=== PATIENT | female | born 1940 | race Caucasian/White ===

== ENCOUNTER 2019-05-27 06:39 | Observation (INO) | payer BC, OTHER ==
[2019-05-27] VITALS (12 sets, daily range): BP systolic 131–160; BP diastolic 40–93
[~2019-05-27] VITALS: Ht 170.2 cm; Wt 104.4 kg
[2019-05-27 07:40] LABS: HEMATOCRIT 37.3 % (37.0-47.0); HEMOGLOBIN 11.9 gm/dL (12.0-15.0); MCH 29.6 pg (26.0-34.0); MCHC 31.9 g/dL (28.0-37.0); MCV 92.9 fL (80.0-100.0); RBC 4.01 mil/uL (4.20-5.00); RDW 14.6 % (10.5-14.5)
[2019-05-27 07:43] LABS: CALCIUM 9.7 mg/dL (8.5-10.1); CREATININE 1.3 mg/dL (0.6-1.0); POTASSIUM 4.9 mmol/L (3.5-5.1)
[2019-05-27] MEDS ORDERED: LEVO-T100 MCG PO (07:50)
[2019-05-27] MEDS ORDERED: CELEXA 20 MG TA20 MG PO (07:51)
[2019-05-27] MEDS ORDERED: TOPROL XL50 MG PO (07:51)
[2019-05-27] MEDS ORDERED: NORCO 10-325 T1 EACH PO (07:52)
[2019-05-27] MEDS ORDERED: INDOMETHACIN 5050 M1 PO (07:53)
[2019-05-27] MEDS ORDERED: TREMFYA100 MG/11 SUBQ (07:54)
--- NOTE | 2019-05-27 09:09 | EKG ---
[facility] [place] [address] ELECTROCARDIOGRAM REPORT Name: REYNOLD WEBB Room #: REG [facility]#: [id number] Admission: 05/27/19 Attend Phys: Donovan Colin MD, Discharge: Date of : 40 Report #: [id number] THIS REPORT FOR: cc: FAM - Family physician unknown FAM - Family physician unknown Karan Deluca MD [facility] THIS REPORT FOR: //name// [facility] Test Date: 2019-05-27 Test Time: 07:14:22 Pat Name: REYNOLD WEBB Department: Room: Gender: Speech Therapy Assistant: Lee Ann BARRERA : 1940 Requested By: Donovan Colin Order Number: [id number] MD: Karan Deluca Measurements Intervals [place] Rate: 63 P: 13 CA: 185 QRS: 66 QRSD: 119 T: 87 QT: 419 QTc: 429 Interpretive Statements Sinus rhythm Probable left ventricular hypertrophy Nonspecific T abnrm, anterolateral leads No previous ECG available for comparison Electronically Signed On 05-27-2019 9:08:05 BUILDING SERVICES COORDINATOR by Karan Deluca [email or web address] <ELECTRONICALLY SIGNED> By: Karan Deluca MD, FACC 05/27/19 0908 3 Karan Deluca MD, [facility] /EPI
--- NOTE | 2019-05-27 16:07 | CATHLAB ---
[facility] [address] [place] [address] INVASIVE PROCEDURE REPORT Name: REYNOLD WEBB Room #: 209-P ADM Mahendra Olivarez#: [id number] Admission: 05/27/19 Attend Phys: Donovan Colin MD, Discharge: Date of : 40 Report #: [id number] THIS REPORT FOR: cc: FAM - Family physician unknown FAM - Family physician unknown Donovan Colin MD [facility] ~ APPROVED REPORT Study performed: 05/27/2019 08:01:47 Patient Details Patient Status: Out-Patient Room #: The patient is a 79 year-old female Event Personnel Donovan Colin Heavy Equipment Technician, Angelique Adan RN RN, Zaria Llamas RTR, Evelyne Weeks Ja'net RTR Monitor, Ileana Mo Monitor Procedures Performed Art Access - R femoral artery* Brandon Access - R femoral vein Right and Left Heart Cath Lt Vent/Cors/Grafts 4116292 RLLVCORCAB Abdominal Aortography 424191 68645 Initial Mod Sed Same Phys/QHP Gr5y 486429 41720 Mod Sed Same Phys/QHP Ea 485812 Hemostasis w/ Mynx STACY Place w/wo Plasty Single CIRC 763587 Hemostasis with Manual pressure Indication Chest pain Procedure Narrative The Right Groin^ was infiltrated with 1% Lidocaine subcutaneous anesthesia. A PINNACLE 6FR Sheath #[id number] sheath was inserted into the RFA^. Coronary angiography was performed using coronary diagnostic catheters. The right coronary system was accessed and visualized with a JR4 catheter. The left coronary system was accessed and visualized with a JL4 catheter. The left ventricle was accessed and visualized with a STR PIG catheter. Left ventriculogram was performed in 30 degree projection. An aortogram of the abdominal aorta was performed. Hemostasis was obtained with manual pressure following sheath removal without any complications. There was no hematoma. A 7FR SHEATH WAS PLACED IN THE RFV FOR RIGHT HEART/SWAN TD. HR = 81 CO = 5.10 CI = 2.34. [facility] [address] [place] [address] INVASIVE PROCEDURE REPORT Name: LAVINIA WEBBJOSHUA Roberts Room #: 209-P [facility]#: [id number] Admission: 05/27/19 Attend Phys: Donovan Colin, Discharge: Date of : 40 Report #: [id number] Intraoperative Conscious Sedation Sedation start time: 822 Case end Time: 1021 Fentanyl 200 mcg Versed 4 mg Fluoro Time: 21.17 minutes Dose: DAP 22578.60 cGycm2 2362 mGy Contrast Type and Amount: Visipaque 205 ml Hemodynamics The right atrial mean pressure is 26 mmHg. The pulmonary artery pressure is 56/19 mmHg with a mean of 37 mmHg. The mean pulmonary capillary wedge pressure is 29 mmHg. The aortic pressure is 169/75 mmHg with a mean of 112 mmHg. The left ventricular pressure is 188/10 mmHg with a mean of mmHg. The left ventricular end diastolic pressure is 18 mmHg. The cardiac output using thermo method is 5.10 L/min. The cardiac index using thermo method is 2.34 L/min/m2. PCI Technique Lesion Percutaneous coronary intervention was performed on the mid circumflex artery segment. BALLOON DILATION A Balloon catheter Sprinter OTW 2.5 x 12 #[id number] was inserted and inflated up to 14atm for 22seconds. Additional Inflation: 18.00atm for 32seconds. STENT DEPLOYMENT A stent XIENCE MICKI RX 2.75 X 12 #[id number] was inserted and inflated up to 18.00atm for 37seconds. Conclusion 1. Successful PTCA stent of a high-grade ostial proximal circumflex artery filling a large distal OM that was not bypassed 90% to 0% with a 2.75 x 12 Micki medicated stent to 3.0 mm ZACH grade III flow #2 left main moderately disease giving rise to an LAD which is occluded in the circumflex that was just stented #3 grayling right occluded #4 SVG to a OM1 is diffusely filling this diffusely diseased vessel the large distal OM was filled via the grayling system which was just stented. #5 SVG to diagonal intact filling a mildly diseased diagonal branch. #6 ectatic large right coronary artery graft is intact with mild disease feeling a relatively small PDA MARY ANN diffusely diseased system but anatomically dominant at least codominant. #7 ARGUETA to LAD is intact with no significant disease diffuse disease [facility] [address] [place] [address] INVASIVE PROCEDURE REPORT Name: REYNOLD WEBB Room #: 209-P [facility] M.R.#: [id number] Admission: 05/27/19 Attend Phys: Donovan Colin, Discharge: Date of : 40 Report #: [id number] LAD extends to the apex #8 normal left nuclear size with inferior basilar akinesis EF 50% range #9 abdominal aorta shows extreme tortuosity prior aortic stent graft intact. Renal arteries remain with brisk flow. Brisk flow and iliac system. Recommendations and plan: Extremely tortuous lower extremity arterial system and stent graft made this technically difficult challenging case. Final result was good these findings are consistent with the nuclear test. This was a large OM branch that was not filled via a vein graft. Market improvement in this flow consistent with the ischemic response on the nuclear test. Follow-up CCU follow post stent protocol. Dual antiplatelet therapy. <ELECTRONICALLY SIGNED> By: Donovan Colin MD, FACC 05/27/19 1606 1606 1606 Donovan Colin MD, FACC /INF
--- NOTE | 2019-05-27 18:07 | NUR ---
PATIENT ARRIVED FROM CATHLAB, ALERT AND ORIENTED X4. RT GRION SITE INTACT, SEE POST CARDIAC CATH FOLLOW INTERVENTION.C/O LEGS AND BACK PAIN MEDICATED ORDERED. AND WILL CONTINUE WITH POC.
[2019-05-28 03:29] VITALS: BP 128/46
[2019-05-28 05:27] LABS: HEMATOCRIT 35.7 % (37.0-47.0); HEMOGLOBIN 11.6 gm/dL (12.0-15.0); MCH 29.9 pg (26.0-34.0); MCHC 32.5 g/dL (28.0-37.0); MCV 92.2 fL (80.0-100.0); RBC 3.87 mil/uL (4.20-5.00); RDW 14.5 % (10.5-14.5); WBC 8.5 thou/uL (4.0-11.0)
[2019-05-28 05:39] LABS: APTT 29.3 Seconds (24.5-32.8); PROTIME 10.2 Seconds (9.3-11.4)
[2019-05-28 05:53] LABS: CALCIUM 8.4 mg/dL (8.5-10.1); CREATININE 1.4 mg/dL (0.6-1.0); TROPONIN-I 0.16 ng/mL (<0.06)
[2019-05-28 07:35] VITALS: BP 158/77
--- NOTE | 2019-05-28 07:53 | NUR ---
PATIENT CARES ASSUMED AT SHIFT CHANGE. PATIENT WAS ASSESSED MEDS WERE PASSED. PATIENT WAS C/O LEG CRAMPS USED ICE PACKS FOR RELIEFE.ALSO TOLD HER ZOFIA CHAVES TO HELP AND TO CHECK WITH HER DOCTOR. ROUNDS WERE DONE DAUGHTER AT THE BEDSIDE
--- NOTE | 2019-05-28 08:08 | EKG ---
[facility] [place] [address] ELECTROCARDIOGRAM REPORT Name: REYNOLD WEBB Room #: 209- ADM [facility] M.R.#: [id number] Admission: 05/27/19 Attend Phys: Donovan Colin MD, Discharge: Date of : 40 Report #: [id number] THIS REPORT FOR: cc: FAM - Family physician unknown FAM - Family physician unknown Karan Deluca MD [facility] THIS REPORT FOR: //name// [facility] Test Date: 2019-05-28 Test Time: 07:30:32 Pat Name: REYNOLD WEBB Department: Room: 209 Gender: F Rewriter: LEONILA : 1940 Requested By: Greer Manning Order Number: [id number] MD: Karan Deluca Measurements Intervals [place] Rate: 76 P: 46 [place]: 157 QRS: 67 QRSD: 118 T: 129 QT: 384 QTc: 432 Interpretive Statements Sinus rhythm Nonspecific ST and T wave abnormality Compared to ECG 05/27/2019 07:14:22 Nonspecific change in the ST and T-wave segments Electronically Signed On 05-28-2019 8:06:48 SPACE BUYER by Karan Deluca [email or web address] <ELECTRONICALLY SIGNED> By: Karan Deluca MD, [facility] 05/28/19805 9 9 Karan Deluca MD, [facility] /EPI
[2019-05-28 08:10] VITALS: BP 158/77
[2019-05-28 08:25] VITALS: BP 158/77
[2019-05-28] MEDS ORDERED: ROSUVASTATIN CA20 MG PO (08:37)
[2019-05-28] MEDS ORDERED: ASPIR 8181 MG PO (08:37)
[2019-05-28] MEDS ORDERED: EFFIENT10 MG PO (08:37)
[2019-05-28] MEDS ORDERED: NORVASC10 MG PO (08:37)
[2019-05-28] MEDS ORDERED: LASIX 40 MG TAB40 MG PO (08:58)
[2019-05-28] MEDS ORDERED: POTASSIUM20 PO (08:58)
--- NOTE | 2019-05-28 10:49 | NUR ---
PT ASSESSED, VSS, REVIEWED POC WITH PT AND DAUGHTER, BOTH VERBALIZED UNDERSTANDING, BENEDICT ROSALES IN TO SEE PT FOR DR HECK, REVIEWED CARE AND MEDS, BOTH VERBALIZED UNDERSTANDING, TELE REMOVED, R AC IV REMOVED, DISCHARGE INSTRUCTIONS REVIEWED AND SIGNED, PT LEFT WITH DAUGHTER AND TOOK ALL BELONGINGS.
== END 2019-05-28 10:53 | disposition home or self-care (01) ==
LOC: CATH 06:39 → 2N 10:52 → CATH 12:19 → ENTRNSPT 05-28 10:41 → EDTRNSPTSTS 05-28 10:44 → 2N 05-28 10:53
PROVIDERS: Nurse Practitioner; ADMIT Internal Medicine Cardiovascular Disease
DX: I25.10 Atherosclerotic heart disease of native coronary artery without angina pectoris (principal); R94.39 Abnormal result of other cardiovascular function study; I10 Essential (primary) hypertension; I11.0 Hypertensive heart disease with heart failure; I50.9 Heart failure, unspecified; E78.5 Hyperlipidemia, unspecified; M54.9 Dorsalgia, unspecified; G89.29 Other chronic pain; I71.4 Abdominal aortic aneurysm, without rupture; I50.32 Chronic diastolic (congestive) heart failure; Z86.73 Personal history of transient ischemic attack (TIA), and cerebral infarction without residual deficits; Z95.1 Presence of aortocoronary bypass graft

== ENCOUNTER 2021-01-03 13:25 | Inpatient (IN) | payer BC, OTHER ==
[~2021-01-03] VITALS: Ht 172.7 cm; Wt 100.4 kg
[~2021-01-03 13:25] MED LIST: ASPIR 8181 MG PO; CELEXA 20 MG TA20 MG PO; EFFIENT10 MG PO; INDOMETHACIN 5050 M1 PO; LASIX 40 MG TAB40 MG PO; LEVO-T100 MCG PO; NORCO 10-325 T1 EACH PO; NORVASC10 MG PO; POTASSIUM20 PO; ROSUVASTATIN CA20 MG PO; TOPROL XL50 MG PO; TREMFYA100 MG/11 SUBQ
[2021-01-03 14:31] VITALS: BP 125/61
[2021-01-03 16:25] LABS: HEMATOCRIT 26.7 % (37.0-47.0); HEMOGLOBIN 8.7 gm/dL (12.0-15.0); MCH 29.3 pg (26.0-34.0); MCHC 32.5 g/dL (28.0-37.0); MCV 90.1 fL (80.0-100.0); RBC 2.96 mil/uL (4.20-5.00); RDW 15.8 % (10.5-14.5)
[2021-01-03 16:43] LABS: CALCIUM 8.3 mg/dL (8.5-10.1); CREATININE 1.6 mg/dL (0.6-1.0); POTASSIUM 4.2 mmol/L (3.5-5.1)
[2021-01-03 16:49] LABS: INR 0.94; PROTIME 10.3 Seconds (10.5-12.1)
[2021-01-03] MEDS ORDERED: BACLOFEN 10MG T10 MG PO (18:16)
[2021-01-03] MEDS ORDERED: LIDODERM1 EACH TRANSDERM (18:18)
[2021-01-03] MEDS ORDERED: ULTRAM50 MG PO (18:19)
--- NOTE | 2021-01-03 18:42 | NUR ---
DIRECT ADMIT GI PT ARRIVED TO ROOM AROUND 1630. PT IS AOX4 AND IS ABLE TO AMBULATE WITH A WALKER SBA. COMPLETED ALL ADMIT ASSESSMENTS AND PROTOCOLS, UPDATED WRISTBAND, SET UP ROOM, CALLED MD FOR ORDERS, AND CONFIRMED WITH GI MD APPROPRIATE CODE STATUS. PT VERBALIZED TO BOTH MD AND RN THAT SHE WOULD NOT LIKE TO BE SAVED. ADMIT CHECKLIST COMPLETED, MEDICATIONS GIVEN INCLUDING PAIN MEDS, AND D5NS FOR LOW BLOOD SUGAR. PLAN TO HAVE EGD TOMORROW TO LOCATE UPPER GI BLEED. WILL POST FIRST STRIP ON CHART, RUNNING NORMAL SINUS RYTHM. WILL UPDATE HYDRO GENERATION MANAGER RN.
[2021-01-03 19:29] VITALS: BP 99/38
[2021-01-04] VITALS (12 sets, daily range): BP systolic 113–147; BP diastolic 34–71
--- NOTE | 2021-01-04 05:52 | NUR ---
Pt. has been up to the bedside comode several times during the night. She has been having loose bloody stools. Bp was low (see VS). Pt. also c/o abdominal pain. Krystal MCMULLEN notified of c/o pain and low bp. See orders CPOE. Iv pain med given (see emar) for c/o abdominal pain with some relief noted. Pt. offers no c/o dizziness. Assisted up to the bedside comode with assistance of one. Bed alarm is on.
[2021-01-04 07:29] LABS: HEMATOCRIT 21.1 % (37.0-47.0); MCH 28.5 pg (26.0-34.0); WBC 7.6 thou/uL (4.0-11.0)
[2021-01-04 07:30] LABS: MCHC 31.7 g/dL (28.0-37.0); RBC 2.34 mil/uL (4.20-5.00); RDW 15.3 % (10.5-14.5)
[2021-01-04 07:46] LABS: HEMOGLOBIN 6.7 gm/dL (12.0-15.0)
--- NOTE | 2021-01-04 15:16 | NUR ---
PT ADMITTED RELATED TO GI BLEED. CM REVIEWED CHART AND SPOKE WITH CARE TEAM. CM MET WITH PT AND FRIEND RODRIGUEZ AT BEDSIDE THIS DAY. PT APPEARED TO BE A&O X4. CM ROLE INTRODUCED. PT INDICATED SHE RESIDES ALONE IN A HOUSE WITH A STAIR GLIDE TO ENTER AND NO STEPS INSIDE. 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 PT INDICATED SHE HAS A CANE AND A FWW FOR USE AT HOME. PT'S PCP IS DR. QUESADA IN [facility]. 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 PT INDICATED SHE PLANS TO RETURN HOME ONCE MEDICALLY STABLE. PT HAVING AN EGD THIS DAY. CM FOLLOWING REGARDING DC PLANNING.
--- NOTE | 2021-01-04 15:35 | NUR ---
Assumed pt care at 7am.Pt in bed very anxious and particular about taking her home pain med. I heard her asking her friend to bring her home med to hospital Assessment completed.vss but low hr noted.Oral pain med given with sips of water.Received call from lab that pt hgb was 6.7 Dr Flores notified. order noted. Blood transfusion started around 1227. No reaction noted.Pt left for gi lab at 1330 accomapnnied by son. Will continue to monitor.
[2021-01-04 20:10] LABS: HEMATOCRIT 25.9 % (37.0-47.0); HEMOGLOBIN 8.5 gm/dL (12.0-15.0)
[2021-01-05] VITALS (9 sets, daily range): BP systolic 122–152; BP diastolic 52–72
[2021-01-05 06:14] LABS: HEMATOCRIT 23.3 % (37.0-47.0); HEMOGLOBIN 7.7 gm/dL (12.0-15.0); MCH 29.7 pg (26.0-34.0); MCV 90.1 fL (80.0-100.0); RBC 2.59 mil/uL (4.20-5.00); RDW 15.3 % (10.5-14.5); WBC 8.6 thou/uL (4.0-11.0)
--- NOTE | 2021-01-05 06:29 | NUR ---
RECEIVED PATIENT FRO LITIGATION DOCKET MANAGER AROUND 2000H.PATIENT IS ALERT AND ORIENTED X4.WITH RIGHT GROIN SITE COVERED WITH DRESSING C/D/I.ON NASAL CANNULA AT 2LPM SATURATING WELL.NOT IN DISTRESS.CONFIREMD WITH DR. Farris REGARDING DIET,HE OREDRED TO START ON CLEAR LIQUIDS.ALL NEEDS ATTENDED.FOR CONTINOUS MONITORING.
[2021-01-05 06:41] LABS: CALCIUM 7.9 mg/dL (8.5-10.1); CREATININE 1.1 mg/dL (0.6-1.0); POTASSIUM 4.1 mmol/L (3.5-5.1)
--- NOTE | 2021-01-05 16:34 | NUR ---
patient resting in bed at this time. patient on room air but occasionally needs oxgen while ambulating; 2 L OXYGEN. pt denies any needs at this time. BM TODAY; PT CONTINUES TO HAVE MELENA STOOLS. DENIES DIZZINESS, HEADACHE, NAUSE, CHEST PAIN, OR SHORTNESS OF AR. NO COMPLAINTS OF PAIN AT THIS TIME. FALL PRECAUTIONS IN PLACE; CALL LIGHT WITHIN REACH.
--- NOTE | 2021-01-05 17:34 | P ---
[facility] [place] [address] PROCEDURE REPORT Name: REYNOLD WEBB Room #: 201-P ADM IN .R.#: [id number] Admission: 01/03/21 Attend Phys: Ollie Khanna MD Discharge: Date of : 40 Report #: [id number] THIS REPORT FOR: cc: FAM - Family physician unknown FAM - Family physician unknown Miles Michele MD ~ cc: Elliot Mart MD, Emory Tabor MD DATE OF SERVICE: 01/04/2021 PROCEDURE PERFORMED: Upper endoscopy with bleeding control. HISTORY OF PRESENT ILLNESS: The patient is an 80-year-old female who was transferred from [facility] for a history of likely upper GI bleed. She had a drop in her hemoglobin. She has had a previous history of peptic ulcer disease in the past. In October was noted to have a duodenal ulcer, was taking meloxicam. She was placed on PPI therapy, but only took it for 1 month. She has had melanotic stools recently. Her hemoglobin has dropped from 8.7-6.7 today. She is receiving 1 unit of packed cells at this time. Plan is for upper endoscopy. DESCRIPTION OF PROCEDURE: The risks and benefits of the procedure were explained to the patient, those risks including but not limited to bleeding, perforation and the risk of sedation. She understood these risks and gave informed consent. Sedation was given using propofol per Anesthesia. Next, using a standard Olympus upper endoscope, the scope was placed in the patient's mouth and advanced under direct vision through the esophagus, stomach and into the second portion of the duodenum. The esophagus was normal throughout. The GE junction was normal. Overall, the gastric mucosa was normal. The pylorus was normal and patent. In the distal duodenal bulb and first portion of the duodenum, a large deep ulcer was noted. There was a visible vessel with fresh clot. I was able to advance the scope beyond this into the second portion of the duodenum, which was normal. I brought the scope back to the ulcer. The ulcer was approximately 2 cm in diameter. I then proceeded with injection of epinephrine and 7-Montserratian bipolar cautery. Unfortunately, it started bleeding with treatment and despite working for approximately 30-40 minutes injecting a total of 5 mL of epinephrine as well as using bipolar cautery, it continued to ooze. The ulcer was deep and was not pulsatile bleeding, but again was continuing to ooze despite endoscopic therapy. At this point, I felt we were not going to be successful in stopping the bleeding. I did not feel like a clip would be able to be used because of the depth of the ulcer and the hardness of the surface. Therefore, at this point, the scope was then withdrawn and the procedure terminated. The patient tolerated the procedure well. IMPRESSION: Duodenal bulb ulcer, visible vessel, adherent clot. Despite multiple efforts to stop bleeding with epinephrine and cauterization, she [address] [address] PROCEDURE REPORT Name: LAVINIA WEBBDA Armando Room #: 201-P [facility] IN ..#: [id number] Admission: 01/03/21 Attend Phys: Ollie Khanna MD Discharge: Date of : 40 Report #: [id number] continues to have oozing at the spot. I therefore discussed the case with Dr. Elliot Mart. Plan is for Dr. Mart to perform an arteriogram this evening in an attempt to stop the bleeding if it is actively still bleeding at that time. We will also speak with Dr. Lamb just in case surgery is required. In the meantime, continue PPI drip and monitoring her closely. Thank you for allowing me to participate in her care. <ELECTRONICALLY SIGNED> By: Miles Michele MD 01/05/21 1734 1502 1628 Miles Michele MD /nt
[2021-01-06 04:23] VITALS: BP 150/80
--- NOTE | 2021-01-06 05:09 | NUR ---
Pt A/OX4,weak,up with SBA/BSC. VSS. C/o back pain at HS medicated per EMAR with relief reported. Pt still having loose dark stools,reported by tech once bright red stool not observed by underwriter solicitation director. Denies any light headedness,nausea or headache. SR/SA on telemetry. New PIV on LAC with Protonix infusing w/o problems. Resting quietly w/o distress oxygen in place at 2L/NC. Fall precautions in place.
[2021-01-06 07:47] VITALS: BP 148/62
[2021-01-06 11:22] LABS: HEMATOCRIT 22.7 % (37.0-47.0); HEMOGLOBIN 7.5 gm/dL (12.0-15.0)
--- NOTE | 2021-01-06 11:23 | NUR ---
TOOK OVER CARE OF PATIENT AT 0700. PATIENT RESTING COMFORTABLY IN BED AT THIS TIME. DENIES ANY NEEDS. HELPED AMBULATE PATIENT TO BSC. DR. ANG ORDERED STAT H&H THIS MORNING; PATIENT'S H&H WAS CANCELLED YESTERDAY BY LAB; CALLED LAB FOR THE STAT LAB. WILL CONTINUE TO MONITOR H&H; PATIENT'S FRIENDS PRESENT IN ROOM. FALL PRECAUTIONS IN PLACE AND CALL LIGHT WITHIN REACH.
[2021-01-06 11:30] VITALS: BP 131/61
[2021-01-06 16:24] VITALS: BP 151/61
[2021-01-06 17:08] LABS: CREATININE 1.1 mg/dL (0.6-1.0); POTASSIUM 4.2 mmol/L (3.5-5.1)
[2021-01-06 17:37] LABS: HEMATOCRIT 21.4 % (37.0-47.0); HEMOGLOBIN 6.9 gm/dL (12.0-15.0)
--- NOTE | 2021-01-06 18:34 | NUR ---
INFORMED DR. CALLES REGARDING PATIENTS LOW HEMOGLOBIN AT 6.9. DR. CALLES DID NOT HAVE ANY NEW ORDERS. DR. ANG ORDERED 1 PRBC TRANSFUION TONIGHT. WILL CONTINUE TO MONITOR HEMOGLOBIN.
[2021-01-06 20:15] VITALS: BP 142/50
[2021-01-06 20:36] VITALS: BP 132/51; BP 153/78
[2021-01-07] VITALS (7 sets, daily range): BP systolic 141–176; BP diastolic 60–78
[2021-01-07 04:38] LABS: HEMOGLOBIN 6.7 gm/dL (12.0-15.0)
[2021-01-07 04:41] LABS: HEMATOCRIT 20.5 % (37.0-47.0)
[2021-01-07 22:39] LABS: HEMATOCRIT 29.6 % (37.0-47.0)
[2021-01-07 22:50] LABS: HEMOGLOBIN 9.6 gm/dL (12.0-15.0)
[2021-01-08 05:00] VITALS: BP 134/58
--- NOTE | 2021-01-08 07:35 | NUR ---
ASSUME CARE 1900. PT/VITALS STABLE. INTERMITTENT BACK PAIN INDICATED. MODERATE RTOLERANCE TO ACTIVITY. ASSESSMENT CHARTED. MODERATE PROGRESS TOWARDS POC. PT DENIES ANY ABDOINAL PAIN. NO TARRY STOOLS NOTED THROUGH THE SHIFT. NO DISTRESS NOTED THROUGH THE NIGHT. SR/SA/1DAVB NOTED ON MONITOR. PLAN IS TO CONTINUE PROTONIX DRIP AND STAY NPO FOR EGD THIS AM. WILL CONTINUE TO MONITOR AND FOLLOW WITH POC
[2021-01-08 08:14] LABS: HEMATOCRIT 29.5 % (37.0-47.0); HEMOGLOBIN 9.5 gm/dL (12.0-15.0); MCH 28.1 pg (26.0-34.0); MCHC 32.3 g/dL (28.0-37.0); MCV 86.8 fL (80.0-100.0); RBC 3.4 mil/uL (4.20-5.00); RDW 17.3 % (10.5-14.5); WBC 6.9 thou/uL (4.0-11.0)
[2021-01-08 08:24] LABS: CALCIUM 8.5 mg/dL (8.5-10.1); CREATININE 1.1 mg/dL (0.6-1.0); POTASSIUM 3.9 mmol/L (3.5-5.1)
[2021-01-08 12:22] VITALS: BP 147/63
[2021-01-08 16:00] VITALS: BP 143/61
[2021-01-08 19:16] VITALS: BP 149/61
[2021-01-09 04:48] VITALS: BP 156/60
--- NOTE | 2021-01-09 08:10 | NUR ---
ASSUME CARE 1900. PT/VITALS STABLE. NO TARRY STOOLS NOTED THROUGH THE NIGHT. CHRONIC BACK PAIN INDICATED WITH MODREATE RELIEF FROM PAIN MEDICATION. ASSESSMENT CHARTED. PROGRESSING WELL WITH POC. PT STILL ON CLEAR LIQUID DIET AND WILL POSSIBLY BE ADVANCED TODAY. TLERATING CLEAR LIQUID WELL. PLAN IS TO POSSIBLY DISCHARGE PT WITHIN 1-2 DAYS IF TOLERATES ADVANCED DIET. WILL CONTINUE TO MONITOR AND FOLLOW WITH POC
[2021-01-09 08:54] VITALS: BP 143/71
[2021-01-09] MEDS ORDERED: SYNTHROID137 MC1 PO (09:59)
[2021-01-09] MEDS ORDERED: MIRALAX17 GM PO (09:59)
[2021-01-09] MEDS ORDERED: PROTONIX40 M2 PO (09:59)
[2021-01-09] MEDS ORDERED: ALPRAZOLAM 0.0.25 M1 PO (09:59)
[2021-01-09 10:24] LABS: HEMATOCRIT 28.7 % (37.0-47.0); HEMOGLOBIN 9.5 gm/dL (12.0-15.0)
[2021-01-09 12:16] VITALS: BP 140/64
[2021-01-09 16:23] VITALS: BP 141/70
--- NOTE | 2021-01-09 17:33 | NUR ---
Patient to dc home today. Called HH agencies that service her area of [facility]. [facility], [place], [facility], [facility], [facility] all cannot accept for HH either do not take insurance or not service area at this time. Sp with patient she reports she is aware no HH service in her area. dtr present and reports they needed to pay out of pocket for care in home in past. Dtr reports she will be avail to assist patient at home. Patient and dtr interest in outpatient therapy. Updated phys for script.
--- NOTE | 2021-01-09 18:04 | NUR ---
PT IS AXOX4, PLEASANT; VSS, AFEBRILE, SR/SA ON THE MONITOR. PT C/O SOME ANXIETY, RX ALPRAZOLAM GIVEN. C/O PAIN IN BACK AND HIPS, RX HYDROCODONE GIVEN. PT PROGRESSED FROM CLEAR LIQUID TO FULL LIQUID TO SOFT DIET PER GI. PT TOLERATED WELL, DENIES N/V. PT TO D/C TO HOME WITH OUTPT THERAPY. DTR AT THE BEDSIDE. PT AND DTR COMMUNICATED UNDERSTANDING. PT TO D/C WITH DTR HOME VIA PERSONAL VEHICLE. FALL PRECAUTIONS IN PLACE. NO CONCERNS AT THIS TIME.
[2021-01-09 18:16] VITALS: BP 148/60
[2021-01-10] MEDS ORDERED: CARAFATE 1 GM TA1 G1 PO ×2 (14:46→14:49)
== END 2021-01-09 19:18 | disposition home or self-care (01) | DRG 378 ==
LOC: 4S 13:25 → 2N 14:03 → 4W 14:03 → 2N 01-04 20:41
PROVIDERS: Anesthesiology; Hospitalist; ADMIT Nuclear Medicine Nuclear Cardiology; ATTEND Hospitalist
PROC: B4181ZZ Fluoroscopy of Bilateral Renal Arteries using Low Osmolar Contrast (ICD-10-PCS; principal; 2021-01-04)
PROC: B4141ZZ Fluoroscopy of Superior Mesenteric Artery using Low Osmolar Contrast (ICD-10-PCS; principal; 2021-01-04)
PROC: 30233N1 Transfusion of Nonautologous Red Blood Cells into Peripheral Vein, Percutaneous Approach (ICD-10-PCS; principal; 2021-01-04)
PROC: 0W3P8ZZ Control Bleeding in Gastrointestinal Tract, Via Natural or Artificial Opening Endoscopic (ICD-10-PCS; principal; 2021-01-04)
PROC: B41J1ZZ Fluoroscopy of Other Lower Arteries using Low Osmolar Contrast (ICD-10-PCS; principal; 2021-01-04)
PROC: B4151ZZ Fluoroscopy of Inferior Mesenteric Artery using Low Osmolar Contrast (ICD-10-PCS; principal; 2021-01-04)
PROC: 0DJ08ZZ Inspection of Upper Intestinal Tract, Via Natural or Artificial Opening Endoscopic (ICD-10-PCS; 2021-01-08)
DX: K26.4 Chronic or unspecified duodenal ulcer with hemorrhage (principal); D62 Acute posthemorrhagic anemia; K25.4 Chronic or unspecified gastric ulcer with hemorrhage; Z96.653 Presence of artificial knee joint, bilateral; E78.5 Hyperlipidemia, unspecified; I25.10 Atherosclerotic heart disease of native coronary artery without angina pectoris; I50.9 Heart failure, unspecified; G89.29 Other chronic pain; M54.9 Dorsalgia, unspecified; M19.90 Unspecified osteoarthritis, unspecified site; M81.0 Age-related osteoporosis without current pathological fracture; Z60.2 Problems related to living alone; R53.81 Other malaise; F32.9 Major depressive disorder, single episode, unspecified; G47.00 Insomnia, unspecified; I11.0 Hypertensive heart disease with heart failure; E16.2 Hypoglycemia, unspecified; F41.9 Anxiety disorder, unspecified; E03.9 Hypothyroidism, unspecified; Z28.21 Immunization not carried out because of patient refusal; Z86.73 Personal history of transient ischemic attack (TIA), and cerebral infarction without residual deficits; Z79.899 Other long term (current) drug therapy
CPT/HCPCS: 10040; 10045; 10081; 10194; 62110; 62900; 70005

== ENCOUNTER → 2021-04-03 | Outpatient (CLI) | payer BC, OTHER ==
[~2021-04-03] VITALS: Ht 172.7 cm; Wt 95.7 kg
[~2021-04-03] MED LIST changes: +ALPRAZOLAM 0.0.25 M1 PO; +AMBIEN 5 MG TABL5 M1 PO; +BACLOFEN 10MG T10 MG PO; +BUSPIRONE HCL15 MG PO; +CARAFATE 1 GM TA1 G1 PO; +LIDODERM1 EACH TRANSDERM; +LOPERAMIDE 2 MG2 M1 PO; +MIRALAX17 GM PO; +PROTONIX40 M2 PO; +SYNTHROID137 MC1 PO; +ULTRAM50 MG PO
--- NOTE | 2021-04-05 09:08 | PATH ---
[facility] [place] [address] PATHOLOGY RPT PROCEDURE Name: REYNOLD PARSONS Room #: REG FLAKITA Abraham.#: [id number] Admission: 04/03/21 Date of : 40 Discharge: Report #: [id number] Path Case #: [id number] [facility] Accession Number: [id number] . 01 Material submitted: . PART A: small bowel - SMALL BOWEL BIOPSY R/O CELIAC PART B: esophagus - DISTAL ESOPHAGUS BIOPSY R/O RICHARDS'S. Modifiers: distal PART C: colon - RANDOM COLON BIOPSY PART D: colon - DESCENDING COLON POLYP. Modifiers: descending . 01 Clinical history: . ESOPHAGOGASTRODUODENOSCOPY, COLONOSCOPY HX OF ULCERS, DIARRHEA POLYP . 02 Diagnosis: A. Small bowel mucosa (biopsy): - Mild nonspecific chronic inflammation of lamina propria with villus height to width ratio of 3-4:1. Changes are not suggestive of sprue or sprue-like condition. . B. Gastric and squamous mucosa (biopsy distal esophagus): - Mild chronic esophagitis, negative for dysplasia, positive for intestinal metaplasia consistent with Barretts metaplasia. . C. Colonic mucosa (random colon biopsy): - Moderate nonspecific chronic inflammation of lamina propria, negative for dysplasia, negative for active chronic colitis. . D. Colonic mucosa (descending colon polyp): - Hyperplastic polypoid mucosa with moderate nonspecific chronic inflammation of lamina propria. . (JON:pau; 04/04/2021) MBR 04/04/2021 1707 Local . 02 Electronically signed: . Jose G Olivares MD, Pathologist NPI- [id number] . 01 Gross description: . A. The specimen is received in formalin, labeled "Reynold Parsons, small bowel biopsy, rule out celiac". Received are 4 segments of pale garay tissue ranging in size from 0.3-0.4 cm in maximum dimensions. The specimen is entirely submitted [place] [address] PATHOLOGY RPT PROCEDURE Name: REYNOLD PARSONS S Room #: REG [facility].#: [id number] Admission: 04/03/21 Date of : 40 Discharge: Report #: [id number] Path Case #: [id number] B. The specimen is received in formalin, labeled "Reynold Parsons, distal esophagus biopsy, rule out Richards's". Received are 4 segments of pale garay tissue ranging in size from 0.2-0.3 cm in maximum dimensions. The specimen is entirely submitted in cassette B1. . C. The specimen is received in formalin, labeled "Reynold Parsons, random colon biopsy". Received are 4 segments of pale garay tissue ranging in size from 0.2-0.3 cm in maximum dimensions. The specimen is entirely submitted in cassette C1. . D. The specimen is received in formalin, labeled "Issa, Reynold, descending colon polyp". Received is a single segment of pale garay tissue measuring 0.5 cm in maximum dimensions. The specimen is entirely submitted in cassette D1. ([facility]; 04/03/2021) NRI/NRI 04/03/2021 2153 Local . 02 Pathologist provided ICD-10: K52.9, K20.90, Z12.11, R19.7 . 02 CPT . 075862, 542242, 042916, 541141 Specimen Comment: A courtesy copy of this report has been sent to [phone], [phone]- Specimen Comment: [id number] Specimen Comment: Report sent to / DR QUESADA Specimen Comment: A duplicate report has been generated due to demographic updates. Performed at: 01 [facility] [address], [place] [id number] MD Nayan Ponce MD Phone: [phone] Performed at: 02 [facility] [address] [id number] MD Jose G Olivares MD Phone: [phone]
== END | disposition home or self-care (01) ==
LOC: GI 08:51
PROVIDERS: ATTEND Internal Medicine
DX: K52.9 Noninfective gastroenteritis and colitis, unspecified (principal); K63.5 Polyp of colon; K57.30 Diverticulosis of large intestine without perforation or abscess without bleeding; K31.89 Other diseases of stomach and duodenum; K22.70 Barrett's esophagus without dysplasia; K20.80 Other esophagitis without bleeding; I11.0 Hypertensive heart disease with heart failure; I50.9 Heart failure, unspecified; E78.5 Hyperlipidemia, unspecified; Z98.890 Other specified postprocedural states; Z79.899 Other long term (current) drug therapy; Z86.73 Personal history of transient ischemic attack (TIA), and cerebral infarction without residual deficits; Z87.891 Personal history of nicotine dependence; Z96.653 Presence of artificial knee joint, bilateral; Z87.19 Personal history of other diseases of the digestive system
CPT/HCPCS: 62110; 62900